=== PATIENT | male | born 1990 | race Caucasian/White ===

== ENCOUNTER 2018-06-12 19:40 | Emergency (ER) | payer SELFPAY ==
[~2018-06-12] VITALS: Ht 182.9 cm; Wt 65.0 kg
[2018-06-12 19:44] VITALS: TEMP 97.2
[2018-06-12 20:30] LABS: COLLECTION METHOD CLEAN CATCH
[2018-06-12 20:35] LABS: BASO % 0.5 % (0.0-2.0); EOS % 0.2 % (0-4.0); HEMATOCRIT 40.2 % (42.0-52.0); HEMOGLOBIN 13.9 g/dl (13.5-18.0); LYMPH % 15.2 % (20.0-51.0); MEAN CELL VOLUME 87 fl (80.0-100.0); MEAN CORPUSCULAR HEMOGLOBIN 30 pg (27.0-31.0); MEAN CORPUSCULAR HGB CONC 35 g/dl (33.0-37.0); MEAN PLATELET VOLUME 10.2 fl (7.4-10.4); MONO # 0.5 (0.1-0.6); MONO % 6.9 % (1.7-9.3); PLATELET COUNT 167 K/mm3 (130-400); RED BLOOD COUNT 4.62 M/mm3 (4.20-5.60); REDCELL DISTRIBUTION WIDTH-CV 12.1 % (11.5-14.5)
[2018-06-12 20:41] LABS: MUCOUS Present /lpf; PH 6 (5-8); SQUAMOUS EPITHELIAL 0-2 /hpf; URINE APPEARANCE Clear; URINE BACTERIA None Seen /hpf; URINE BILIRUBIN Negative (NEGATIVE); URINE BLOOD Negative (NEGATIVE); URINE COLOR Yellow; URINE GLUCOSE Negative (NEGATIVE); URINE KETONE Trace (NEGATIVE); URINE LEUKOCYTE ESTERASE Negative (NEGATIVE); URINE NITRATE Negative (NEGATIVE); URINE PROTEIN(semi-quant) 1+ (NEGATIVE); URINE RBC 0-2 /hpf; URINE UROBILINOGEN Negative (NEGATIVE)
[2018-06-12 20:44] LABS: ALANINE AMINOTRANSFERASE 27 U/L (21-72); ALBUMIN 4.9 gm/dL (3.5-5.0); ALKALINE PHOSPHATASE 60 U/L (50-136); ANION GAP 9 mmol/L (7-16); AST,SGOT 25 U/L (15-37); BLOOD UREA NITROGEN 10 mg/dL (9-20); CALCIUM 9.8 mg/dL (8.4-10.2); CARBON DIOXIDE 27 mmol/L (22-30); CHLORIDE 105 mmol/L (98-107); CREATININE, serum 0.87 mg/dL (0.66-1.25); GLUCOSE 99 mg/dL (74-106); POTASSIUM 4.1 mmol/L (3.4-5.0); SODIUM 142 mmol/L (137-145); TOTAL PROTEIN 8.2 gm/dL (6.4-8.2)
[2018-06-12 20:46] LABS: TRICYCLIC ANTIDEPRESS URINE NEGATIVE
[2018-06-12 20:49] LABS: ACETAMINOPHEN < 10 ug/mL (10-30); ALCOHOL(ethanol),MEDICAL < 10 mg/dL; SALICYLATE < 1.0 mg/dL
[2018-06-12 22:52] VITALS: BP 104/69; PULSE 71
== END 2018-06-12 22:57 | disposition home or self-care (01) ==
LOC: COL.ER 19:40
PROVIDERS: Physician Assistant
DX: R45.851 Suicidal ideations (principal)

== ENCOUNTER 2019-12-10 19:27 | Emergency (ER) | payer SELFPAY ==
[~2019-12-10] VITALS: Ht 182.9 cm; Wt 68.2 kg
[2019-12-10 19:35] VITALS: BP 125/74; TEMP 98.3
[2019-12-10] MEDS ORDERED: NORCO 325 MG-51 TAB PO (20:50)
[2019-12-10 21:02] VITALS: PULSE 74
== END 2019-12-10 21:02 | disposition home or self-care (01) ==
LOC: COL.ER 19:27
DX: S62.306A Unspecified fracture of fifth metacarpal bone, right hand, initial encounter for closed fracture (principal); F17.210 Nicotine dependence, cigarettes, uncomplicated; W22.8XXA Striking against or struck by other objects, initial encounter
CPT/HCPCS: Q4021